=== PATIENT | female | born 1975 | race Caucasian/White ===

== ENCOUNTER → 2019-05-31 | Emergency (ER) | payer BC ==
[~2019-05-31] VITALS: Ht 160 cm; Wt 44.8 kg
[~2019-05-31] MED LIST: HYDROmorphONE 1 MG/ML SYG IV STA; HYDROmorphONE 2 MG/ML SYG IV STA; IOHEXOL 300MG/ML 150 ML BTL ONE; KETOROLAC 30 MG INJ IV STA; LORA1TAB PO; LORAZEPAM 2 MG INJ IV ONE; NALO4SPR NS; ONDANSETRON 4 MG INJ IV STA; SOD CHLORIDE 0.9% 1,000 ML IV STA; SOD CHLORIDE 0.9% 100 ML ONE
[2019-05-31 10:22] VITALS: Ht 160 cm; Wt 44.8 kg
[2019-05-31 15:18] VITALS: BP 164/108; PULSE 80; RESP 20
--- NOTE | 2019-05-31 16:02 | ERD ---
ER Documentation Chief Complaint Chief Complaint pelvic pain x 7 months , needs pain meds HPI Patient is a 43-year-old female who presents with pelvic pain that has been going on for 7 months. She states at that time she had a partial hysterectomy where everything was removed except her ovaries. Since then she has had 2 other surgeries to help with complications from the original surgery. The last surgery was about 1 month ago in which surgery was performed to remove adhesions. She is had 10 out of 10 pain essentially from after the first surgery. She has been taking multiple pain medications such as Percocet which only helps for about an hour but then the pain comes back. She was recently prescribed a new medication called Nucynta which she does state was helping however she did not like how it made her feel so she stopped taking that 2 days ago. This medication was given to her by pain management doctor, Dr. Dunlap . She has no urinary symptoms. Only severe pain ROS All systems reviewed and are negative except as per history of present illness. Medications Home Meds Active Scripts Naloxone HCl nasal spray (Narcan 4 mg/0.1 mL nasal) 4 Mg [place], 4 MG NS .Q2-3MIN for OPIOID OVERDOSE, #2 SPRAY 0 Refills [place] 0.1 mL into one nostril. Repeat with second device into other nostril after 2-3 minutes if no or minimal response Prov:TRENTON HAYES PA-C 05/31/19 Lorazepam* (Lorazepam*) 1 Mg Tablet, 1 MG PO Q8, #15 TAB Prov:TRENTON HAYES PA-C 05/31/19 Allergies Allergies: Coded Allergies: metoclopramide (Verified Allergy, Unknown, 05/31/19) morphine (Verified Allergy, Unknown, 05/31/19) nitrofurantoin (Verified Allergy, Unknown, 05/31/19) tetracycline (Verified Allergy, Unknown, 05/31/19) Uncoded Allergies: IV CONTRAST (Allergy, Unknown, 05/31/19) SULFA (Allergy, Unknown, 05/31/19) PMhx/Soc History of Surgery: Yes (Hyterectomy) Anesthesia Reaction: No Hx Cardiac Disorders: Yes (HTN) Hx Miscellaneous Medical Probl: Yes (endometriosis) Hx Alcohol Use: No Hx Substance Use: No Hx Tobacco Use: No Smoking Status: Never smoker FmHx Family History: No diabetes Physical Exam Vitals Vital Signs Date Temp Pulse Resp B/P (MAP) Pulse Ox O2 O2 Flow FiO2 Time Delivery Rate 05/31/19 98.8 80 20 164/108 98 Room Air 15:18 (126) 05/31/19 98.1 84 18 148/81 99 10:22 (103) Physical Exam INITIAL VITAL SIGNS: Reviewed by me GENERAL: Awake, alert and oriented x 4, well appearing, nontoxic, speaking in full sentences. Moderate distress secondary to pain HEAD: Atraumatic NECK: Supple. No masses. Full range of motion. No meningismus. No midline tenderness. RESPIRATORY: Clear to auscultation bilaterally. Symmetric chest wall rise. No wheezing or rales. No accessory muscle use. CV: Regular rate and rhythm. No murmurs, rubs, or gallops. ABDOMEN: Soft, diffuse lower abdominal tenderness, with healed surgical scars on abdomen. Result Diagram: 05/31/19 1114 05/31/19 1114 Results 24 hrs Laboratory Tests Test 05/31/19 11:14 05/31/19 11:24 White Blood Count 5.8 10^3/ul Red Blood Count 4.05 10^6/ul Hemoglobin 12.7 g/dl Hematocrit 37.7 % Mean Corpuscular Volume 93.1 fl Mean Corpuscular Hemoglobin 31.4 pg Mean Corpuscular Hemoglobin Concent 33.7 g/dl Red Cell Distribution Width 11.7 % Platelet Count 271 10^3/UL Mean Platelet Volume 10.4 fl Immature Granulocytes % 0.300 % Neutrophils % 56.3 % Lymphocytes % 36.3 % Monocytes % 5.5 % Eosinophils % 0.9 % Basophils % 0.7 % Nucleated Red Blood Cells % 0.0 /100WBC Immature Granulocytes # 0.020 10^3/ul Neutrophils # 3.3 10^3/ul Lymphocytes # 2.1 10^3/ul Monocytes # 0.3 10^3/ul Eosinophils # 0.1 10^3/ul Basophils # 0.0 10^3/ul Nucleated Red Blood Cells # 0.0 10^3/ul Urine Color STRAW Urine Clarity CLEAR Urine pH 6.0 Urine Specific [place] 1.004 Urine Ketones NEGATIVE mg/dL Urine Nitrite NEGATIVE mg/dL Urine Bilirubin NEGATIVE mg/dL Urine Urobilinogen NEGATIVE mg/dL Urine Leukocyte Esterase NEGATIVE Mily/ul Urine Microscopic RBC 2 /HPF Urine Microscopic WBC 0 /HPF Urine Bacteria FEW /HPF Urine Hemoglobin 2+ mg/dL Urine Glucose NEGATIVE mg/dL Urine Total Protein NEGATIVE mg/dl Sodium Level 143 mmol/L Potassium Level 4.0 mmol/L Chloride Level 107 mmol/L Carbon Dioxide Level 30 mmol/L Anion Gap 6 Blood Urea Nitrogen 5 mg/dl Creatinine 0.67 mg/dl Est Glomerular Filtrat Rate mL/min > 60 mL/min Glucose Level 83 mg/dl Calcium Level 9.3 mg/dl Total Bilirubin 0.6 mg/dl Direct Bilirubin 0.00 mg/dl Indirect Bilirubin 0.6 mg/dl Aspartate Amino Transf (AST/SGOT) 23 IU/L Alanine Aminotransferase (ALT/SGPT) 27 IU/L Alkaline Phosphatase 51 IU/L Total Protein 7.5 g/dl Albumin 4.3 g/dl Globulin 3.20 g/dl Albumin/Globulin Ratio 1.34 Lipase 56 U/L POC Beta HCG, Qualitative NEGATIVE Current Medications Medications Dose Sig/Rick Start Time Status Last (Trade) Ordered Route PRN Stop Time Admin Dose Reason Admin Sodium 1,000 ml @ Q1H STAT 05/31/19 DC 05/31/19 Chloride 1,000 mls/hr IV 11:02 05/31/19 11:29 12:01 2 mg ONCE STAT 05/31/19 DC 05/31/19 Hydromorphone IV 11:02 05/31/19 11:34 HCl 11:03 (Dilaudid) Ondansetron 4 mg ONCE STAT 05/31/19 DC 05/31/19 HCl (Zofran IV 11:02 05/31/19 11:34 Inj) 11:03 Ketorolac 30 mg ONCE STAT 05/31/19 DC 05/31/19 Tromethamine IV 12:34 05/31/19 13:07 (Toradol) 12:36 Lorazepam 1 mg ONCE ONCE 05/31/19 DC 05/31/19 (Ativan) IV 13:00 05/31/19 13:08 13:01 IV Flush 10 ml STK-MED 05/31/19 DC (NS 10 ml) ONCE .ROUTE 14:55 05/31/19 14:56 Sodium 100 ml @ ud STK-MED 05/31/19 DC Chloride ONCE .ROUTE 14:55 05/31/19 14:56 Iohexol 150 ml STK-MED 05/31/19 DC (Omnipaque ONCE .ROUTE 14:55 05/31/19 300mg/ ml) 14:56 2 mg ONCE STAT 05/31/19 Cancel Hydromorphone IV 15:20 05/31/19 HCl 15:21 (Dilaudid) Ondansetron 4 mg ONCE STAT 05/31/19 DC 05/31/19 HCl (Zofran IV 15:20 05/31/19 15:32 Inj) 15:21 Lorazepam 1 mg ONCE ONCE 05/31/19 05/31/19 (Ativan) IV 16:00 05/31/19 15:39 16:01 Procedures/MDM This is a 43-year-old female who has pelvic pain. Originally from surgery which was 7 months ago and then she had another surgery 1 month ago. Pain is severe and she does appear to be in moderate distress secondary to the pain. Laboratory analysis shows no evidence of acute emergent abnormality. No evidence of significant leukocytosis suggesting systemic infection or severe anemia. No evidence of acute renal or liver failure, no evidence of severe alkalosis or acidosis. CT scan was nonacute. She was given IV pain medications including Di laudid, and Toradol. She was also given Ativan. Multiple attempts were made to contact her pain management doctor however they were unsuccessful. Patient will be discharged home with prescriptions for Ativan and prescription for Narcan. Both myself and Dr. Wong have long conversations with the patient and patient was discharged with precautions. She plans to follow-up with pain management on Monday. Patient counseled regarding my diagnostic impression and care plan. Prior to discharge all questions answered. Pt agrees with treatment plan and understands strict return precautions. Pt is instructed to follow up with primary care provider within 24-48 hours. Precautionary instructions provided including instructions to return to the ER if not improving or for any worsening or changing symptoms or concerns. Departure Diagnosis: Primary Impression: Pelvic pain Condition: Stable Patient Instructions: Pelvic Pain, Unknown Cause Additional Instructions: Call your primary care doctor TOMORROW for an appointment during the next 1-2 days.See the doctor sooner or return here if your condition worsens before your appointment time. TRENTON HAYES PA-C May 31, 2019 16:02
== END | disposition home or self-care (01) ==
LOC: FTE 10:16
DX: R10.2 Pelvic and perineal pain (principal); I10 Essential (primary) hypertension
CPT/HCPCS: 36415; 74176; 80053; 81001; 81025; 83690; 85025; 96361; 96374; 96375; 96376; 99285; J1170; J1885; J2060; J2405; J7030; Q9967